=== PATIENT | female | born 1960 | race Caucasian/White ===

== ENCOUNTER 2019-11-11 08:16 | Emergency (ER) | payer MEDICAID, SELFPAY ==
[2019-11-11 08:17] VITALS: BP 115/65; PULSE 91; RESP 18; TEMP 36.8; O2SAT 100; BMI 24.8
--- NOTE | 2019-11-11 08:18 | EKG12_ITS ---
Test Reason : Blood Pressure : / mmHG Vent. Rate : 088 BPM Atrial Rate : 088 BPM P-R Int : 154 ms QRS Dur : 076 ms QT Int : 366 ms P-R-T Axes : 054 008 028 degrees QTc Int : 442 ms Normal sinus rhythm Normal ECG Confirmed by KASIE STEVENS, VERONICA ([id number]), editor city BRITTNY ANDERSON ([id number]) on 11/15/2019 2:16:45 PM Referred By: GEORGE Confirmed By:KRISHNA FERRO MD
--- NOTE | 2019-11-11 08:24 | RAD_ITS ---
STUDY: X-RAY CHEST REASON FOR EXAM: Female, 59 years old. DX PLEURISY X ABOUT 3 WEEKS AGO. TECHNIQUE: Single AP portable view of the chest. COMPARISON: None. FINDINGS: Blunting of both costophrenic angles slightly more prominent on the left side. Mild increased markings at the left lung base suggestive of left basilar atelectasis. Normal size heart. Normal mediastinum and kalin. Normal visualized pulmonary arteries. There is atherosclerotic calcification of the aortic arch with tortuosity. Normal visualized thoracic spine. Normal visualized ribs, clavicles, and shoulders. There is no demonstrated abnormality of the visualized soft tissue structures of the upper abdomen. RAD/Chest 1 View (Portable) IMPRESSION: Blunting of both costophrenic angles with mild increased markings at the left lung base suggestive of left basilar atelectasis. Electronically Signed: Jonathon Lugo, at 8:42 EST , Service support ,
--- NOTE | 2019-11-11 08:45 | VDLE_ITS ---
Reason For Study: Swelling RIGHT LEFT GSV is normal. GSV is normal. CFV is compressible, spontaneous, phasic, CFV is compressible, spontaneous, phasic, competent and demonstrates normal competent, and demonstrates normal augmentation. augmentation. FV is compressible, spontaneous, phasic, FV is compressible, spontaneous, phasic, competent and demonstrates normal competent and demonstrates normal augmentation. augmentation. POP V is compressible, spontaneous, phasic, POP V is compressible, spontaneous, phasic, competent and demonstrates normal competent and demonstrates normal augmentation. augmentation. T/P Trunk is compressible. T/P Trunk is compressible. PTV is compressible. PTV is compressible. RT PerV is compressible. LT PerV is compressible. Procedure Exam performed portable in ED. A preliminary report was called and/or faxed to [facility]. Interpretation Summary No evidence for acute deep venous thrombosis bilateral lower extremities with patent and compressible bilateral great saphenous veins. Ordering Physician: River Blanton Referring Physician: Hilary Ignacio Performed By: Diane Samaniego RVT
--- NOTE | 2019-11-11 08:45 | CT_ITS ---
STUDY: CTA CHEST REASON FOR EXAM: Female, 59 years old. CHEST PAIN, HX PLEURISY RADIATION DOSAGE (If Supplied By Facility): CTDIvol = ( 6.57 ) mGy, DLP = ( 124.90 ) mGycm TECHNIQUE: The examination was performed with the intravenous administration of 100 CC ISOVUE 370. Post-processing of the angiographic images was performed, with multiplanar reformation and 3D reconstruction. Individualized dose optimization techniques were used for this CT. COMPARISON: Comparison is made with prior chest radiograph done earlier in the day. FINDINGS: Normal enhancement of the main pulmonary artery and right and left pulmonary arteries. Normal enhancement of the bilateral peripheral pulmonary arteries. There is no demonstrated pulmonary embolism. Normal thoracic aorta and visualized great vessels. There is no demonstrated aortic dissection. Normal heart and pericardium. Normal mediastinum. Normal hilar regions. Normal visualized trachea and bronchi. The lungs are well expanded. Bilateral pleural effusions right greater than left with mild right basilar atelectasis. Mild degree of emphysematous changes in the upper lobes. Normal chest wall structures. There are degenerative changes of thoracic spine. Normal visualized upper abdomen. CT/CTA Chest W/WO Contrast IMPRESSION: Bilateral pleural effusions right greater than left with mild right basilar atelectasis. Electronically Signed: Jonathon Lugo, at 9:49 EST , Service support ,
[2019-11-11 08:47] LABS: Absolute Lymphocyte Count 2.38 X10^3/uL (0.83-4.51); Absolute Neutrophil Count 4.9 X10^3/uL (2.0-7.7); Basophil# 0.07 X10^3/uL; Basophil% 0.8 % (0-1); Eosinophil# 0.55 X10^3/uL; Eosinophils% 6.3 % (0-5); Hematocrit 40.6 % (37-47); Hemoglobin 13.4 g/dL (12.0-15.0); Lymphocyte # 2.38 X10^3/ul (4.0); Lymphocyte % 27.2 % (19-41); Mean Corpuscular Hgb 29.9 pg (27.0-32.0); Mean Corpuscular Volume 90.6 fL (81-99); Mean Platelet Vol. 8.8 fl (6.2-12.0); Monocyte# 0.83 X10^3/uL; Monocyte% 9.5 % (0-10); NRBC Flagged by Analyzer 0 % (0-5); Neutrophil # 4.91 X10^3/uL (2.7-7.7); Platelet Count 582 K/mm3 (150-450); RBC Distribution Width CV 12.3 % (11.6-14.6); RBC Distribution Width SD 40.8 fl (35.1-43.9); Red Blood Count 4.48 M/mm3 (4.2-5.4); White Blood Count 8.8 K/mm3 (4.4-11.0)
--- NOTE | 2019-11-11 08:49 | ED.VIS.GEN ---
History of Present Illness Chief Complaint: Chest Pain Informant: Patient Onset: Month(s) Maximum Severity: Mild Narrative: The patient complains of right-sided stabbing chest pain that she has had since mid September, she indicates that basically she began having sharp stabbing chest pain she was seen by her physicians multiple times and diagnosed with pleurisy, she indicates she was placed on erythromycin and Aleve which helped her symptoms but she has been having intermittent episodes of paroxysms of stabbing right-sided chest pain this occurred last night for most of the night she had sharp stabbing chest pain and she presents today for evaluation. She has no history of HI PE DVT bowel bladder habits unremarkable indicates she was of her legs seem tense or swollen she has no history of kidney liver GI elements or DVT she does not recall a cough recently but may have had 1 back in September she is a generally healthy person with no history of cardiovascular or pulmonary disorders Past Medical History - Allergies and Home Meds Allergies/Adverse Reactions: Allergies mold Allergy (Verified 11/11/19 08:19) Other Primary Care Physician: Hilary Ignacio [Primary Care Provider] - Past Medical History: - Review of Systems ROS: - Fluids as above General: Denies: Chills, Fever, Sweats Eyes: Denies: Visual changes - bilaterally, Diplopia ENT: Denies: Rhinorrhea, Sore throat Cardiovascular: Reports: Chest pain, - - Stabbing right-sided chest pain. Denies: Palpitations Respiratory: Denies: Dyspnea, Cough, Dyspnea on exertion Gastrointestinal: Denies: Abdominal pain, Nausea, Vomiting, Diarrhea, Melena, Hematochezia Genitourinary: Denies: Dysuria, Hematuria, Frequency Musculoskeletal: Denies: Back pain, Extremity Pain Skin: Denies: Rash, Wounds Neurological: Denies: Headache, Weakness, Numbness Physical Exam Vital Signs/Narrative: Vital Signs Temp Pulse Resp BP Pulse Ox 11/11/19 08:17 98.2 F 91 18 115/65 100 General: Well nourished, Well developed, No Acute Distress Head: Normocephalic, Atraumatic Eyes: Perrl, EOMI ENT: Moist mucous membranes, No rhinorrhea Neck: Supple, Nontender Cardiovascular: Regular rate, Regular rhythm, No murmurs Respiratory: No distress, CTA bilaterally, Chest nontender Abdomen: Soft, Nontender, Nondistended, Normal bowel sounds Back: Nontender, Normal Inspection Extremities: Nontender, No edema Skin: Normal color, No rash Neurological: Alert, Oriented x3, Cranial nerves II-XII grossly intact, Normal Strength, Normal Sensation Psychological: Normal affect, Normal Mood Diagnostic/Tx/Re-eval - Medical Decision Making The patient's vital signs are unremarkable pulse ox is normal her exam is unremarkable as well no acute gross abnormalities no edema moving all 4 extremities her lungs are clear the heart tones are normal, EKG shows a sinus rhythm rate of 88 no acute injury pattern intervals within normal range given all the above screening labs pain management CTA duplex scan Screening labs are generally unremarkable to those reports, the CTA chest shows right greater than left pleural effusion no other acute gross abnormalities see that report, duplex scan negative for DVT bilaterally, reevaluation resting comfortably bed discussed all the above with her and her boyfriend she is comfortable with discharge home, she has taken prednisone in the past, she will continue to use her Aleve, she will use prednisone 20 mg a day for 5-day course she understands she is follow-up with her outpatient providers for potential referral to pulmonology or other management options and return for change in symptoms as the exact etiology of the pleural effusions are unclear and she will require outpatient management and she prefers outpatient management Home stable Impression final intermittent stabbing right chest pain, right greater than left pleural effusions etiology unclear ED Disposition - Plan for ED Patient: Diagnosis: Pleural effusion Instructions: Pleurisy, CHEST PAIN, Uncertain Cause Prescriptions: Hydrocodone Bitart/Apap 5-325 [[place] 5MG-325MG] 1 tab PO Q4H PRN PRN 2 Days #10 tab PRN Reason: Pain Prescription Printed Prednisone 10 mg PO UD #33 tablet predniSONE tablet 20 mg PO DAILY #5 tab Prescription Printed Referrals: Hilary Ignacio [Primary Care Provider] -
[2019-11-11 09:06] LABS: Anion Gap 6 (5-15); BUN 9 mg/dL (7-18); BUN/Creat Ratio 13.2 RATIO (10-20); Calcium,Total 9.1 mg/dL (8.5-10.1); Chloride 104 mmol/L (98-107); Creatinine, Serum 0.68 mg/dL (0.55-1.02); EST Glomerular Filtration Rate 93 mL/min (>60); Est Glom Filt Rate - Afr Amer 113 mL/min (>60); Estimated Creatinine Clearance 69.58 ml/min; Glucose 96 mg/dL (74-106); Potassium 3.9 mmol/L (3.5-5.1); Sodium Level 139 mmol/L (136-145)
[2019-11-11 09:19] LABS: Mucous, Urine 0 SEEN /hpf (<or=2+); Red Blood Cells-Urine 0 SEEN /hpf (0-5); Squamous Epithelial Cells - UA 0 SEEN /hpf (5-10)
[2019-11-11 09:28] LABS: Color, Urine Yellow (Yellow); Glucose, Dipstick Normal (Normal); Ketone-Dipstick Negative (Negative); Leukocyte Esterase-Dipstick 100 /ul (Negative); Nitrite-Dipstick Negative (Negative); Occult Blood-Urine Negative /ul (Negative); Protein-Dipstick Negative (Negative); Specific Gravity, Urine 1.015 (1.002-1.030); Urine Bilirubin Dipstick Negative (Negative); Urine Clarity Sl. Cloudy (Clear); Urine Urobilinogen Normal (Normal)
[2019-11-11 09:44] LABS: Amorphous Sediment 2+; Bacteria 1+ /hpf (None Seen); White Blood Cells 0-5 SEEN /hpf (0-5)
[2019-11-11 10:08] VITALS: BP 121/102; PULSE 82; RESP 16; TEMP 36.9; O2SAT 97
[2019-11-11 10:30] LABS: BNP,B-Type NATRIURETIC PEPTIDE 23.3 pg/mL (0-100)
[2019-11-11 11:35] VITALS: BP 126/82; PULSE 80; RESP 16; O2SAT 98
[2019-11-11] MEDS: Ketorolac 30 MG/ML Syringe IV (11:40)
[2019-11-11] MEDS: Ondansetron 4 MG/2 ML Vial IV (11:40)
[2019-11-11] MEDS: morphine 8 MG/ML Syringe 6 MG IV (11:40)
[2019-11-11] MEDS: predniSONE 20 MG Tablet 40 MG PO (11:41)
== END 2019-11-11 12:07 | disposition home or self-care (01) ==
LOC: ED 08:54
PROVIDERS: Emergency Provider Emergency Medicine; PCP Internal Medicine
DX: J90 Pleural effusion, not elsewhere classified (principal); Z79.899 Other long term (current) drug therapy
CPT/HCPCS: 71045; 71275; 80048; 81001; 83880; 84484; 85025; 93005; 93970; 96374; 96375; 99285; Q9967; A4216; J2405

== ENCOUNTER → 2019-11-24 11:09 | Outpatient (CLI) | payer MEDICAID, SELFPAY ==
[2019-11-24 07:19] VITALS: BMI 25.0
--- NOTE | 2019-11-24 11:13 | RAD_ITS ---
STUDY: X-RAY CHEST REASON FOR EXAM: Female, 59 years old. SOB, HX OF PLEURAL EFFUSION TECHNIQUE: Frontal and lateral views of the chest. COMPARISON: 11/11/2019 FINDINGS: The lungs are clear and expanded. There is no demonstrated pleural abnormality. Normal size heart. Normal mediastinum and kalin. Normal visualized pulmonary arteries. Normal visualized aortic arch and descending thoracic aorta. Normal visualized thoracic spine. Normal visualized ribs, clavicles, and shoulders. There is no demonstrated abnormality of the visualized soft tissue structures of the upper abdomen. RAD/Chest PA and Lateral IMPRESSION: Normal x-ray examination of the chest. Electronically Signed: Pool Addison MD at 21:48 EST Tel , Service support ,
== END ==
PROVIDERS: PCP Internal Medicine; Referring Provider Internal Medicine Critical Care Medicine; Visit Provider Internal Medicine Critical Care Medicine
DX: J90 Pleural effusion, not elsewhere classified (principal)
CPT/HCPCS: 71046

== ENCOUNTER → 2019-12-10 07:57 | Outpatient (CLI) | payer MEDICAID, SELFPAY ==
[2019-11-24 07:19] VITALS: BMI 25.0
--- NOTE | 2019-12-10 09:04 | ECHOD_ITS ---
Reason For Study: Other Procedure This was a 2D Doppler, Color Flow transthoracic echocardiogram. Exam performed in department. Left Ventricle Normal size and thickness. The estimated ejection fraction is 65 %. Stage 1 diastolic dysfunction. No regional wall motion abnormalities noted. Right Ventricle Normal size and thickness. Normal systolic function. Atria Normal left atrium. Normal right atrium. Normal atrial septum. Mitral Valve The mitral valve is structurally normal. No prolapse or stenosis seen. Tricuspid Valve Normal tricuspid valve. Trivial tricuspid valve insufficiency. Unable to estimate RV systolic pressure due to insufficient tricuspid regurgitant envelope. Aortic Valve Normal aortic valve. Trisinus/trileaflet aortic valve. Pulmonic Valve Normal pulmonic valve. Great Vessels Normal aortic root. Normal arch. Normal inferior vena cava. Inferior vena cava collapse with sniff. Pericardium/Pleural No pericardial effusion. MMode/2D Measurements & Calculations LVIDd: 4.4 cm IVSd: 0.83 cm Ao root diam: 2.7 cm LVIDs: 2.5 cm LVPWd: 0.80 cm RVDd: 2.6 cm FS: 44.2 % LAV(MOD-bp): 33.2 ml LVAd ap4: 21.7 cm2 SV(MOD-sp4): 33.8 ml LAV(MOD-bp) Indexed: 20.5 ml/m2 EDV(MOD-sp4): 55.4 ml LAV(MOD-sp2): 31.2 ml EDV(sp4-el): 58.0 ml LAV(MOD-sp4): 30.2 ml LVAs ap4: 11.7 cm2 ESV(MOD-sp4): 21.7 ml ESV(sp4-el): 22.0 ml EF(MOD-sp4): 60.9 % EF(sp4-el): 62.0 % SV(sp4-el): 36.0 ml LA A4 area: 13.6 cm2 LA dimension(2D): 3.3 cm RA A4 area: 11.3 cm2 Doppler Measurements & Calculations MV E max vikas: 98.7 cm/sec Lat Peak E' Vikas: 8.9 cm/sec Med Peak E' Vikas: 8.8 cm/sec MV A max vikas: 106.8 cm/sec E/E' lat: 11.1 E/E' med: 11.2 MV E/A: 0.92 Ao V2 max: 164.6 cm/sec LV V1 max: 121.9 cm/sec PA V2 max: 107.9 cm/sec Ao max P.8 mmHg LV V1 max P.9 mmHg Ao V2 mean: 121.9 cm/sec Ao mean P.4 mmHg Ao V2 VTI: 32.6 cm Interpretation Summary The estimated ejection fraction is 65 %. Stage 1 diastolic dysfunction. Trivial tricuspid valve insufficiency. Unable to estimate RV systolic pressure due to insufficient tricuspid regurgitant envelope. There is no comparison study available. Ordering Physician: Tacho Sutton Referring Physician: Hilary Ignacio Performed By: Lamar Roman, KEATON, RVT
[2019-12-10 10:52] LABS: Thyroid Stim Hormone (TSH) 2.54 uIU/mL (0.358-3.74)
--- NOTE | 2019-12-11 05:33 | PFTCOMP ---
COMPLETE PULMONARY FUNCTION TEST INTERPRETATION Brief HPI: Patient is a 59 year old female, currently under the care of Dr. Sutton, who presents to [facility] for complete pulmonary function tests secondary to diagnosis of pleurisy. Respiratory therapist reports good effort and reproducible results. Interpretation: Forced expiration spirometry shows a mild large airways obstructive ventilatory defect with an FEV1 of 97% predicted. There is a significant bronchodilator response by strict ATS criteria. Spirograms are of good quality and plateau slowly, indicating slowly emptying areas of the lungs. The respiratory flow volume loop shows decreased expiratory flow rates at high lung volumes consistent with small airways obstruction. Lung volumes by body plethysmography show a normal total lung capacity at 4.94 L, 110% predicted. All other lung volumes are within normal limits. Diffusion capacity by carbon monoxide is normal at 74% predicted. The airway resistance is normal. No previous pulmonary function tests were available for review. Impression: Fully reversible mild large airways obstructive ventilatory defect and a pattern consistent with asthma.
== END ==
PROVIDERS: PCP Internal Medicine; Referring Provider Internal Medicine Critical Care Medicine; Visit Provider Internal Medicine Critical Care Medicine
DX: J90 Pleural effusion, not elsewhere classified (principal); R07.9 Chest pain, unspecified; R94.6 Abnormal results of thyroid function studies; F17.211 Nicotine dependence, cigarettes, in remission
CPT/HCPCS: 36415; 84443; 93306; 94060; 94726; 94729

== ENCOUNTER 2020-04-27 18:08 | Emergency (ER) | payer MEDICAID, SELFPAY ==
[2020-01-06 09:32] VITALS: BMI 25.0
[2020-04-27] VITALS (8 sets, daily range): BP systolic 76–136; BP diastolic 50–72; PULSE 68–86; RESP 16–20; TEMP 36.3–36.4; O2SAT 99–100; BMI 26.6
--- NOTE | 2020-04-27 18:53 | EKG12_ITS ---
Test Reason : DYSRHYTHMIA Blood Pressure : / mmHG Vent. Rate : 073 BPM Atrial Rate : 073 BPM P-R Int : 146 ms QRS Dur : 074 ms QT Int : 424 ms P-R-T Axes : 069 011 032 degrees QTc Int : 467 ms Normal sinus rhythm Nonspecific T wave abnormality Prolonged QT Abnormal ECG Confirmed by KASIE STEVENS, VERONICA ([id number]), editor book BRITTNY ANDERSON ([id number]) on 05/01/2020 9:38:02 AM Referred By: CALIXTO Confirmed By:KRISHNA FERRO MD
--- NOTE | 2020-04-27 18:56 | ED.RN ---
PT WAS UP TO BSC AND HAD A VERY LARGE MAROON BM PT BACK TO BED AT THIS TIME.
[2020-04-27 19:05] LABS: Absolute Lymphocyte Count 4.57 X10^3/uL (0.83-4.51); Basophil# 0.06 X10^3/uL; Basophil% 0.4 % (0-1); Eosinophil# 0.09 X10^3/uL; Eosinophils% 0.6 % (0-5); Hematocrit 28.4 % (37-47); Hemoglobin 9.1 g/dL (12.0-15.0); Lymphocyte # 4.57 X10^3/ul (4.0); Lymphocyte % 30.5 % (19-41); Mean Corpuscular Volume 93.7 fL (81-99); Mean Platelet Vol. 9.7 fl (6.2-12.0); Monocyte# 1.12 X10^3/uL; Monocyte% 7.5 % (0-10); NRBC Flagged by Analyzer 0 % (0-5); Neutrophil % 60.2 % (47-70); Platelet Count 351 K/mm3 (150-450); RBC Distribution Width CV 17.2 % (11.6-14.6); RBC Distribution Width SD 58.4 fl (35.1-43.9); Red Blood Count 3.03 M/mm3 (4.2-5.4)
[2020-04-27] MEDS: 0.9% Normal Saline 1,000 ML 1000 ML IV (19:05)
[2020-04-27 19:18] LABS: AST(SGOT) 4 U/L (15-37); Alanine Aminotransfer ALT/SGPT 15 U/L (13-56); Albumin, Serum 2.4 g/dL (3.2-5.0); Alkaline Phosphatase 77 U/L (45-117); Anion Gap 4 (5-15); BUN 25 mg/dL (7-18); BUN/Creat Ratio 36.3 RATIO (10-20); Bilirubin, Direct 0.06 mg/dL (0.00-0.30); Calcium,Total 7.8 mg/dL (8.5-10.1); Chloride 111 mmol/L (98-107); Creatinine, Serum 0.69 mg/dL (0.55-1.02); EST Glomerular Filtration Rate 92 mL/min (>60); Est Glom Filt Rate - Afr Amer 112 mL/min (>60); Estimated Creatinine Clearance 68.57 ml/min; Globulin 2.7 g/dL (2.2-4.2); Glucose 203 mg/dL (74-106); Lipase 97 U/L (73-393); Protein, Total 5.1 g/dL (6.4-8.2); Sodium Level 141 mmol/L (136-145)
--- NOTE | 2020-04-27 19:19 | ED.DCSUM_ITS ---
History of Present Illness Chief Complaint: Syncope Informant: Patient Onset: Today Current Severity: Moderate Maximum Severity: Moderate Narrative: Patient presents after syncopal episode. She states she felt fine at work today. When she got home from work she was sitting on the couch watching television. She began to get lightheaded and break out in cold sweats. She stood from the couch, her eyes rolled back, and she passed out and fell to the floor. After arrival to the ER she got to bedside commode. Nursing staff states that she filled half the commode with melena. Patient does report a history of an ulcer. She has not had recent abdominal pain. - Past Medical History (1) Asthma Status: Chronic (2) Rheumatoid arthritis Status: Chronic Past Medical History - Allergies and Home Meds Allergies/Adverse Reactions: Allergies mold Allergy (Verified 01/06/20 09:23) Other Primary Care Physician: Hilary Ignacio MD [Primary Care Provider] - Prior records reviewed: Yes Lives: Spouse/ Significant Other Smoking Status: Former smoker Review of Systems General: Denies: Chills, Fever Eyes: Denies: Visual changes - bilaterally ENT: Denies: Bilateral ear pain Cardiovascular: Denies: Chest pain Respiratory: Denies: Dyspnea, Cough Gastrointestinal: Reports: Diarrhea, Melena Genitourinary: Denies: Dysuria Musculoskeletal: Denies: Swelling, Extremity Pain Skin: Denies: Rash Neurological: Denies: Headache Hematologic: Denies: Easy bruising, Easy bleeding Allergy: Denies: Uticaria Physical Exam Vital Signs/Narrative: Vital Signs Temp Pulse Resp BP Pulse Ox 04/27/20 18:14 97.6 F L 77 16 121/72 H 99 04/27/20 18:10 97.6 F L 80 18 121/72 H 99 Inital Vital Signs reviewed: Yes General: Well nourished, Well developed Head: Normocephalic ENT: Moist mucous membranes Neck: Supple Cardiovascular: Regular rate, Regular rhythm, Tachycardia Respiratory: No distress Abdomen: Soft, Nontender, Hypoactive bowel sounds Skin: Diaphoresis Neurological: Alert, Oriented x3 Psychological: Normal affect Diagnostic/Tx/Re-eval Laboratory Results 04/27/20 04/27/20 04/27/20 18:33 18:33 18:33 WBC 15.0 H RBC 3.03 L Hgb 9.1 L Hct 28.4 L MCV 93.7 MCH 30.0 MCHC 32.0 RDW Std Deviation 58.4 H RDW Coeff of Batsheva 17.2 H Plt Count 351 MPV 9.7 Immature Gran % (Auto) 0.800 Neut % (Auto) 60.2 Lymph % (Auto) 30.5 Gentry % (Auto) 7.5 Eos % (Auto) 0.6 Baso % (Auto) 0.4 Absolute Neuts (auto) 9.0 H Absolute Lymphs (auto) 4.57 H Nucleated RBC % 0 PT 14.4 INR 1.2 APTT 23.8 L Sodium 141 Potassium 4.0 Chloride 111 H Carbon Dioxide 26.0 Anion Gap 4 L BUN 25 H Creatinine 0.69 Estim Creat Clear Calc 68.57 Est GFR (MDRD) Af Amer 112 Est GFR (MDRD) Non-Af 92 BUN/Creatinine Ratio 36.3 H Glucose 203 H Calcium 7.8 L Total Bilirubin 0.10 L Direct Bilirubin 0.06 AST 4 L ALT 15 Alkaline Phosphatase 77 Total Protein 5.1 L Albumin 2.4 L Globulin 2.7 Lipase 97 Crossmatch 04/27/20 19:04 WBC RBC Hgb Hct MCV MCH MCHC RDW Std Deviation RDW Coeff of Batsheva Plt Count MPV Immature Gran % (Auto) Neut % (Auto) Lymph % (Auto) Gentry % (Auto) Eos % (Auto) Baso % (Auto) Absolute Neuts (auto) Absolute Lymphs (auto) Nucleated RBC % PT INR APTT Sodium Potassium Chloride Carbon Dioxide Anion Gap BUN Creatinine Estim Creat Clear Calc Est GFR (MDRD) Af Amer Est GFR (MDRD) Non-Af BUN/Creatinine Ratio Glucose Calcium Total Bilirubin Direct Bilirubin AST ALT Alkaline Phosphatase Total Protein Albumin Globulin Lipase Crossmatch See Detail - EKG Initial EKG Interpretation: Sinus Rhythm - Sinus at 73. Nonspecific lateral T wave flattening. - Medical Decision Making Patient's blood pressure did drop to 75/55. She was given 2 L of fluid IV. Repeat blood pressure is currently 125 systolic. Hemoglobin is 9.1. Last available to compare to is from October of this year at which time is 13.4. She was given IV Protonix. I did speak with on-call surgery here. Because of her methotrexate and history of ulcer he felt like she should be treated at a larger facility. Patient has had previous procedures done in [place] and would prefer transfer there. I spoke with [facility] transfer line and patient was accepted by . Addendum: [facility] called back and states that they now realize that they do not have GI coverage at [place]. They do not feel patient should come to that facility. After speaking with the patient she would prefer to go to [facility] as opposed to going to 1 of their facilities in [place]. I spoke with the transfer line at [facility]. While we are awaiting callback patient has had 2 more episodes of bloody diarrhea. Repeat hemoglobin is 8.1. I will go ahead and transfuse 1 unit of blood as she is continued to have active bleeding. Blood pressure has maintained in the 120s systolic. She will be going to the medical floor at [facility]. ED Disposition - Plan for ED Patient: Disposition: Acute Care Hospital - Other Diagnosis: GI bleed, Syncope Referrals: Hilary Ignacio MD [Primary Care Provider] -
[2020-04-27] MEDS: 0.9% Normal Saline 1,000 ML 999 ML IV (19:28)
[2020-04-27 19:39] LABS: International Normalized Ratio 1.2; Prothrombin Time (Protime)PT. 14.4 SECONDS (11.7-14.9)
[2020-04-27 19:40] LABS: Partial Thromboplast Time 23.8 Seconds (24.1-36.2)
--- NOTE | 2020-04-27 20:17 | ED.RN ---
INFORMATION FAXED TO [facility] FOR ADMISSION AT THIS TIME
--- NOTE | 2020-04-27 22:11 | ED.RN ---
Pt was placed on bedpan x2 with moderate amount of liquid maroon stools each time.
[2020-04-27 22:29] LABS: Hematocrit 25.8 % (37-47); Hemoglobin 8.1 g/dL (12.0-15.0)
[2020-04-28 00:15] VITALS: BP 111/63; PULSE 83; RESP 16; TEMP 36.4; O2SAT 100
[2020-04-28 00:33] VITALS: BP 133/62; PULSE 81; RESP 16; TEMP 36.2; O2SAT 100
[2020-04-28] MEDS: 0.9% Normal Saline 1,000 ML 150 ML IV (00:58)
[2020-04-28 01:00] VITALS: BP 109/63; PULSE 80; RESP 18; TEMP 36.4; O2SAT 100
[2020-04-28 01:05] VITALS: BP 109/63; PULSE 80; RESP 18; TEMP 36.4; O2SAT 100
[2020-04-28 01:32] VITALS: BP 109/63; PULSE 80; RESP 18; TEMP 36.4; O2SAT 100
== END 2020-04-28 01:25 | disposition short-term general hospital (02) ==
PROVIDERS: Emergency Provider Emergency Medicine; PCP Internal Medicine
DX: K92.1 Melena (principal); R55 Syncope and collapse; J45.909 Unspecified asthma, uncomplicated; M06.9 Rheumatoid arthritis, unspecified; Z79.52 Long term (current) use of systemic steroids; Z79.899 Other long term (current) drug therapy; Z87.891 Personal history of nicotine dependence
CPT/HCPCS: 36430; 80048; 80076; 83690; 85014; 85018; 85025; 85610; 85730; 86850; 86900; 86901; 86920; 86922; 93005; 96361; 96365; 99285; J7030; J7040; P9016; A4216; J3490

== ENCOUNTER → 2020-05-26 12:47 | Outpatient (CLI) | payer MEDICAID, SELFPAY ==
[2020-04-27 18:10] VITALS: BMI 26.6
[2020-05-26 13:39] LABS: Hematocrit 36.1 % (37-47); Hemoglobin 11.1 g/dL (12.0-15.0); Mean Corp Hgb Conc 30.7 g/dL (32-36); Mean Corpuscular Hgb 28.9 pg (27.0-32.0); Mean Platelet Vol. 9.2 fl (6.2-12.0); Platelet Count 628 K/mm3 (150-450); RBC Distribution Width CV 16.9 % (11.6-14.6); RBC Distribution Width SD 57.2 fl (35.1-43.9); Red Blood Count 3.84 M/mm3 (4.2-5.4); White Blood Count 6.7 K/mm3 (4.4-11.0)
== END ==
PROVIDERS: PCP Internal Medicine
DX: K92.2 Gastrointestinal hemorrhage, unspecified (principal)
CPT/HCPCS: 36415; 85027